=== PATIENT | male | born 1990 | race Caucasian/White ===

== ENCOUNTER 2018-06-29 22:43 | Emergency (ER) | payer BC ==
[2018-06-29] MEDS ORDERED: Ketorolac Tromethamine 30 MG/ML VIAL ONE (23:38)
[2018-06-29] MEDS ORDERED: predniSONE 20 MG TAB ONE (23:38)
== END 2018-06-30 00:10 | disposition home or self-care (01) ==
LOC: SCSER 22:43
DX: M54.42 Lumbago with sciatica, left side (principal); F90.9 Attention-deficit hyperactivity disorder, unspecified type; I10 Essential (primary) hypertension; Z79.899 Other long term (current) drug therapy
CPT/HCPCS: 96372; J1885